=== PATIENT | female | born 1935 | race Caucasian/White ===

== ENCOUNTER 2020-08-19 16:57 | Day surgery (SDC) | payer MEDICARE ==
[~2020-08-19 16:57] MED LIST: Glycopyrrolate 0.2 MG/ML 5 ML SYRINGE ONE; Lidocaine 1% PF 5 ML VIAL ONE; PROPOFOL 200 MG/20 ML VIAL ONE; Rocuronium Bromide 10 MG/ML (10ML VIAL) ONE; ePHEDrine 50 MG/ML VIAL ONE
[2020-08-19] MEDS ORDERED: Fentanyl 100 MCG/2 ML VIAL ONE (17:57)
--- NOTE | 2020-08-19 18:48 | CON ---
DATE OF CONSULTATION: 08/19/2020 CHIEF COMPLAINT: Something stuck in the esophagus. HISTORY OF PRESENT ILLNESS: Ms. Griffith is an 85-year-old woman, who went to the emergency room in [place] today because she was unable keep water down. She ate some turkey last night. After that, around midnight, she went to take some of her medications and when she drank the water, then the water just stuck in her chest and she felt pressure and pain in her chest until she vomited the water back up. Since then, whenever she tries to drink water, just goes part way down and stays in her esophagus and then comes back up. She was then transferred from the [place] [facility] up to [facility] for GI consultation for foreign body in the esophagus. She has had no prior nausea or vomiting. She in the past did have problems with solid food dysphagia, but over the last couple of years, those symptoms have been better. Around six months ago, she had five coronary stents placed in her heart by Dr. Corral. She has been on Plavix for that. She has had no abdominal pain or diarrhea or constipation or blood in the stool. Her weight has been stable. PAST MEDICAL HISTORY: Coronary artery disease, hypertension, hyperlipidemia, hypothyroidism. PAST SURGICAL HISTORY: Tonsillectomy. She had multiple coronary stents in last summer. FAMILY HISTORY: Her mother had colon cancer. SOCIAL HISTORY: No alcohol, tobacco, or drugs. ALLERGIES: NO KNOWN DRUG ALLERGIES. MEDICATIONS: As an outpatient include, 1. Aspirin 81 mg daily. 2. Clopidogrel 75 mg daily. 3. Losartan. 4. [place] Thyroid. 5. Isosorbide mononitrate. 6. Atorvastatin. REVIEW OF SYSTEMS: Negative x10 systems reviewed except as stated in the history of present illness. PHYSICAL EXAMINATION: VITAL SIGNS: Blood pressure 185/91, pulse 83, temperature 98. GENERAL: She is in no acute distress. Alert and oriented x3. HEENT: Eyes have no scleral icterus. Oropharynx is clear without lesions. No cervical or supraclavicular lymphadenopathy. LUNGS: Clear to auscultation bilaterally. HEART: Regular rate and rhythm without murmur. ABDOMEN: Soft, nontender, and nondistended. Bowel sounds are present. EXTREMITIES: No lower extremity edema. IMPRESSION: 1. Esophageal foreign body. She does have a past history of esophageal dysphagia-type symptoms, but states over the last couple years, this has not been bothering her. 2. Coronary artery disease. RECOMMENDATIONS: 1. EGD this evening. 2. Start proton pump inhibitor daily. Job ID: [id number]
[2020-08-19] MEDS ORDERED: SUGAMMADEX SODIUM 200 MG/2 ML VIAL ONE (19:57)
--- NOTE | 2020-08-19 21:33 | OP ---
DATE OF PROCEDURE: 08/19/2020 PROCEDURE: Esophagogastroduodenoscopy with removal of esophageal foreign body. PREOPERATIVE DIAGNOSIS: Esophageal food impaction. DESCRIPTION OF PROCEDURE: Informed consent was obtained. The patient was sedated with general anesthesia. The endoscope was advanced to the distal esophagus where a large meat bolus was encountered. This was some type of shredded poultry. A snare was used to grab some large chunks of meat and this was removed. After that, a rat-tooth forceps was used to pick apart piece by piece. Finally a snare with a Hodge Net was used to remove some additional pieces. Then, a rat-tooth forceps was used to pick apart down to a point that I could push the remaining bolus on through to the stomach. 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 The Z-line appeared normal. The stomach was normal including retroflexed views. The pylorus and first and second portions of the duodenum were normal. The air was suctioned from the stomach. The procedure was completed. IMPRESSION: Large esophageal food meat bolus impaction. This was removed with prolonged procedure with multiple instruments. 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 However, this does not seem particularly tight and there might be a motility component to her condition. RECOMMENDATION: 1. Start proton pump inhibitor daily. 2. Follow up in the office. She will eventually require a followup endoscopy and potentially manometry. 3. Blend her foods in the meantime until followup. Job ID: [id number]
== END 2020-08-19 21:04 | disposition home or self-care (01) ==
LOC: ER/OP 16:57 → SDC 21:04
PROVIDERS: ATTEND Internal Medicine Gastroenterology
PROC: 0DC58ZZ Extirpation of Matter from Esophagus, Via Natural or Artificial Opening Endoscopic (ICD-10-PCS; principal; 2020-08-19)
DX: T18.128A Food in esophagus causing other injury, initial encounter (principal); I25.10 Atherosclerotic heart disease of native coronary artery without angina pectoris; I10 Essential (primary) hypertension; E78.5 Hyperlipidemia, unspecified; E03.9 Hypothyroidism, unspecified; Z79.02 Long term (current) use of antithrombotics/antiplatelets; Z79.82 Long term (current) use of aspirin; Z79.899 Other long term (current) drug therapy
CPT/HCPCS: J2704; J3010; J3490